=== PATIENT | female | born 1940 | race Two or more races ===

== ENCOUNTER 2020-04-17 05:37 | Day surgery (SDC) | payer OTHER ==
[~2020-04-17 05:37] MED LIST: AMLO PO; COZAAR100 MG PO; DOXAZOSIN MESYLA4 MG PO; GABAPENT PO; GLIPIZIDE XL10 MG PO; HYDROCHLOROTH12.5 MG PO; NASAL MIST126 ML; OMEPRAZOLE20 M1 PO; PRAVASTATIN SOD20 MG PO; SYNJARDY XR 121 EACH PO
[2020-04-17] MEDS ORDERED: MACROBID 100 M100 MG PO (09:52)
[2020-04-17] MEDS ORDERED: ULTRACET PO (09:52)
== END 2020-04-17 13:45 | disposition home or self-care (01) ==
LOC: CIR.AMB 05:37
PROVIDERS: ATTEND Obstetrics & Gynecology Gynecology
DX: N81.11 Cystocele, midline (principal); Z20.828 Contact with and (suspected) exposure to other viral communicable diseases